=== PATIENT | female | born 1965 | race Caucasian/White ===

== ENCOUNTER 2018-07-29 16:40 | Emergency (ER) | payer OTHER ==
[~2018-07-29] VITALS: Ht 170.2 cm; Wt 77.1 kg
[2018-07-29] MEDS ORDERED: PERCOCET 5-3251 EACH PO (20:49)
== END 2018-07-29 21:06 | disposition home or self-care (01) ==
LOC: ER 16:40
DX: S99.811A Other specified injuries of right ankle, initial encounter (principal); X50.1XXA Overexertion from prolonged static or awkward postures, initial encounter; Y93.89 Activity, other specified; Y92.89 Other specified places as the place of occurrence of the external cause; Y99.8 Other external cause status